=== PATIENT | male | born 1950 | race Caucasian/White ===

== ENCOUNTER → 2024-01-06 | Outpatient (CLI) | payer MEDICARE ==
[2024-01-07 05:38] LABS: Clam IgE <0.10 kU/L; Codfish IgE <0.10 kU/L; Egg White IgE <0.10 kU/L; Peanut IgE <0.10 kU/L; Scallop IgE <0.10 kU/L; Shrimp IgE <0.10 kU/L; Soybean IgE <0.10 kU/L; Walnut IgE (Food) 0.46 kU/L
[2024-01-07 05:39] LABS: Alternaria alternata IgE 0.18 kU/L; Aspergillus fumagatus IgE <0.10 kU/L; Cat Epith & Dander IgE 0.54 kU/L; Cladosporian herbarum IgE <0.10 kU/L; Dermato. farinae IgE <0.10 kU/L; Dog Dander IgE 0.39 kU/L; Maple (Box Elder) IgE 0.12 kU/L; Oak IgE 2.87 kU/L; Ragweed,Common IgE 4.34 kU/L
[2024-01-07 10:11] LABS: Cockroach IgE <0.10 kU/L
[2024-01-07 14:30] LABS: Pork IgE Class CLASS 0
[2024-01-07 14:31] LABS: Beef IgE <0.10 kU/L (<0.10); Beef IgE Class CLASS 0; Chicken IgE Class CLASS 0; Yeast Bakers/Brew IgE <0.10 kU/L (<0.10); Yeast Bakers/Brew IgE Class CLASS 0
[2024-01-07 14:32] LABS: Johnson Grass IgE Class CLASS 0/1; Rhizopus nigricans IgE <0.10 kU/L (<0.10); Rhizopus nigricans IgE Class CLASS 0; Timothy Grass IgE 1.92 kU/L (<0.10); Timothy Grass IgE Class CLASS 2
[2024-01-07 14:33] LABS: Latex IgE Class CLASS 0/1; Mucor racemosus IgE <0.10 kU/L (<0.10); Mucor racemosus IgE Class CLASS 0
[2024-01-07 14:34] LABS: Aureo. pullulans IgE <0.10 kU/L (<0.10); Aureo. pullulans IgE Class CLASS 0; Candida albicans IgE Class CLASS 0; Epicoccum purpurascens Class CLASS 0; Epicoccum purpurascens IgE <0.10 kU/L (<0.10)
[2024-01-07 14:35] LABS: Avocado Class CLASS 0/1; Banana IgE Class CLASS 0/1; Hazelnut IgE 1.83 kU/L (<0.10); Hazelnut IgE Class CLASS 2; Kiwi IgE 0.38 kU/L (<0.10); Kiwi IgE Class CLASS 1; S.rostrata/Helminth Class CLASS 0; S.rostrata/Helminth IgE <0.10 kU/L (<0.10); Sycamore(Mpl.Lf) IgE 0.14 kU/L (<0.10); Sycamore(Mpl.Lf) IgE Class CLASS 0/1; Walnut Tree IgE 0.15 kU/L (<0.10); Walnut Tree IgE Class CLASS 0/1
[2024-01-07 14:36] LABS: White Ash IgE Class CLASS 0/1
[2024-01-07 14:37] LABS: Com. Pigweed IgE 0.11 kU/L (<0.10); Com. Pigweed IgE Class CLASS 0/1; English Plantain IgE Class CLASS 0/1; Lamb's Quarter IgE <0.10 kU/L (<0.10); Lamb's Quarter IgE Class CLASS 0
== END | disposition home or self-care (01) ==
LOC: LABWHC1 13:13
PROVIDERS: ATTEND Otolaryngology
DX: L50.0 Allergic urticaria (principal)
CPT/HCPCS: 36415; 82785; 86003

== ENCOUNTER → 2024-07-26 | Day surgery (SDC) | payer MEDICARE ==
[2024-07-20 14:45] VITALS: BMI 27.9
[~2024-07-26] MED LIST: LIDOCAINE 1% (10MG/ML) FOR IV START INTRADERMA PRN; MIDAZOLAM 2 MG/2 ML VIAL ONE; TETRACAINE 0.5% OPHTH (PF) DROPS 4 ML BTL OP PRN; fentaNYL (PF) 50 MCG/ML 2 ML AMP ONE
[2024-07-26] MEDS: IV FLUID CONTINUATION 1,000 ML IV ONE (08:22)
[2024-07-26 08:24] VITALS: TEMP 97.3
[2024-07-26] MEDS: LACTATED RINGERS 1,000 ML IV SCH (08:27)
[2024-07-26] MEDS: CYCLOPENTOLATE 1% OPHTH SOLN 2 ML BTL OP PRN (08:28)
[2024-07-26] MEDS: PHENYLEPHRINE 2.5% OPHTH DRP 2ML OP PRN (08:31)
[2024-07-26] MEDS: HYALURONATE SODIUM INTRAOCULAR 1 EACH SYRINGE (12MG/ML) INTRAOCULA ONE (09:18)
[2024-07-26] MEDS: BALANCED SALT IRRIG SOLN COMB2 15 ML IRRIG.SOLN INTRAOCULA ONE (09:19)
[2024-07-26] MEDS: LIDOCAINE 1% (PF) 10MG/ML VIAL MISCELLANE ONE (09:19)
[2024-07-26] MEDS: EPINEPHrine (PF) 0.3 ML in BALANCED SALT IRRIG SOLN COMB2 500 ML IRRIGATION ONE (09:20)
[2024-07-26] MEDS: MOXIFLOXACIN HCL 0.5% DROPS 3 ML BTL OP PRN (09:29)
[2024-07-26] MEDS: TIMOLOL 0.5% OPHTH DROPS 5 ML BTL OP PRN (09:29)
[2024-07-26] MEDS: TRIAMCINOLONE ACETONIDE 40 MG/ML 1 ML VIAL INTRADERMA ONE (09:31)
[2024-07-26] MEDS: ACETYLCHOLINE CHLORIDE 10 MG/ML 2 ML KIT INTRAOCULA ONE (10:10)
[2024-07-26] MEDS: FLUORESCEIN STRIPS 1 MG STRIP LEFT EYE ONE (10:14)
--- NOTE | 2024-07-26 10:22 | P.OP ---
Date of Procedure: 07/26/24 Preoperative Diagnosis: cloudy lens Postoperative Diagnosis: same Procedure(s) Performed: IOL exchange Anesthesia: MAC Surgeon: Wilmer Sosa Pathology: none sent Condition: stable Disposition: same day Indications for Procedure: blurry vision Operative Findings: no complications
[2024-07-26 14:58] VITALS: RESP 18
[2024-07-26 14:59] VITALS: BP 150/94; PULSE 99
--- NOTE | 2024-07-26 18:11 | OP ---
OPERATIVE REPORT DATE OF SERVICE : 07/26/2024 PROCEDURE PERFORMED: Intraocular lens exchange of the left eye. PREOPERATIVE DIAGNOSIS: Damaged intraocular lens, left eye. POSTOPERATIVE DIAGNOSIS: Damaged intraocular lens, left eye. ANESTHESIA: Topical. ESTIMATED BLOOD LOSS: None. SPECIMEN TAKEN: None. DESCRIPTION OF PROCEDURE: After obtaining the appropriate consent, the patient was brought to the operating room. There, he was placed under cardiac monitoring, prepped and draped in the usual sterile manner. He was approached from his left temporal side, and at the 5 o'clock position, an MVR blade was used to create a paracentesis port. Through this opening, 1% Xylocaine MPF 50:50 mix with balanced salt solution was injected into the anterior chamber. This was followed by stabilization of the anterior chamber with Amvisc. At the 3 o'clock position, a 2.8 mm keratome was used to create a self-sealing corneal flap incision. Using various instruments including balanced salt solution on a Binkhorst cannula, various probes such as a Sinskey hook and MeMedt lens manipulator, the bag fixated intraocular lens was rocked, and eventually, from its well-healed position within the capsular bag. The capsular bag had a capsulotomy from a previous laser procedure, and care was taken so as not to increase the size of either the anterior or posterior capsule openings. In removing the intraocular lens, primarily, the optic from the superior and inferior positions easily slipped out from between the two capsular leaflets. The nasal haptic also was able to finally be freed from within the capsule of the lens bag itself, however, significant difficulty was encountered in removing the nasal haptic due to the confirmation of the tip of the haptic itself, which was bulb shaped, realizing that there was too much tension being placed on the zonules to the capsular bag and the inability to truly get between the two leaflets of the capsule, it was decided to amputate the temporal haptic as close to the capsular openings as possible using a [employer] lens removal system, the temporal haptic was amputated, leaving approximately 30% of the haptic retained between the leaflets of the capsular bag. The lens was now freely able to move around the anterior chamber. Additional Amvisc was used to tamponade the posterior capsular opening to reduce the opportunity for the lens to slip posteriorly and attempt to scroll the lens out of the anterior chamber was unsuccessful, therefore, the lens was divided into two equal parts using the [employer] lens removal system. Once the lens was removed from the anterior chamber, then, irrigation and aspiration were used to remove the viscoelastic, and Kenalog was instilled into the anterior chamber after it had been washed 3 times with balanced salt solution to identify any stray vitreous from the previous vitrectomy, which had led to the clouding of the existing intraocular lens or the just removed intra-ocular lens. There was no evidence of any stray vitreous in the anterior chamber. The majority of the viscoelastic and Kenalog was removed with the irrigation and aspiration, and a Bausch and Lomb LI61AO, 17 diopter posterior chamber intraocular lens was then inserted into the anterior capsule using both Bechert and Sinskey hooks. The intraocular lens was then rotated so that the haptics rested at the 3 and 9 o'clock position in the ciliary sulcus and the body of the lens was captured at the level of the anterior capsule securing the lens in position. Gentle irrigation and aspiration were used to remove any remaining portion of viscoelastic in the anterior chamber and one final check with Kenalog was used to prove no residual vitreous in the anterior chamber as well. At this stage in the procedure, Miochol was used to bring about pupillary miosis. The temporal incision was checked for watertight integrity, and the eye was then brought to normal intraocular pressure through the paracentesis port with balanced salt solution. The patient then received 2 drops of 5% timolol, followed by 2 drops of 0.5% moxifloxacin was then lightly patched and shielded in the usual manner. There were no complications from the procedure. He tolerated the procedure well and returned to the outpatient recovery in good condition. MMODL / IJN: [id number] /
== END | disposition home or self-care (01) ==
LOC: OR 07:24
PROVIDERS: ATTEND Ophthalmology
DX: T85.9XXD Unspecified complication of internal prosthetic device, implant and graft, subsequent encounter

== ENCOUNTER 2025-01-22 07:18 | Day surgery (SDC) | payer MEDICARE ==
[~2025-01-22 07:18] MED LIST changes: +ALPRAZolam 0.25 MG TAB PO PRN; +ALPRAZolam 0.5 MG TAB PO PRN; +HEPARIN SODIUM,PORCINE (1 ML) 2,500 UNIT in SODIUM CHLORIDE 0.9% 250 ML IRRIGATION PRN; +HEPARIN SODIUM,PORCINE 10,000 UNIT in SODIUM CHLORIDE 0.9% 1,000 ML IRRIGATION PRN; -LIDOCAINE 1% (10MG/ML) FOR IV START INTRADERMA PRN; -MIDAZOLAM 2 MG/2 ML VIAL ONE; +NITROGLYCERIN SL TABS 0.4 MG TAB SUBLINGUAL PRN; -TETRACAINE 0.5% OPHTH (PF) DROPS 4 ML BTL OP PRN; -fentaNYL (PF) 50 MCG/ML 2 ML AMP ONE
[2025-01-22 07:35] VITALS: RESP 16; TEMP 98.4
[2025-01-22] MEDS: SODIUM CHLORIDE 0.9% 1,000 ML in EMPTY BAG 1 BAG IV SCH (07:40)
[2025-01-22] MEDS: IV FLUID CONTINUATION 1,000 ML IV ONE (07:44)
[2025-01-22] MEDS: ATORVASTATIN 80 MG TAB PO STA (07:46)
[2025-01-22] MEDS: ASPIRIN 325 MG TAB PO STA (07:46)
[2025-01-22] MEDS: HEPARIN SODIUM,PORCINE 10,000 UNIT in SODIUM CHLORIDE 0.9% 1,000 ML IRRIGATION ONE (08:07)
[2025-01-22] MEDS: HEPARIN SODIUM,PORCINE (1 ML) 2,500 UNIT in SODIUM CHLORIDE 0.9% 250 ML IRRIGATION ONE (08:07)
[2025-01-22 08:09] LABS: African American GFR (CKD) >90 (>60 ml/min/1.73 sqM); Anion Gap 8 mmol/L; Blood Urea Nitrogen 14 mg/dL (9-20); Calcium 9.4 mg/dL (8.4-10.2); Carbon Dioxide 29 mmol/L (22-30); Chloride 99 mmol/L (98-107); Glucose 131 mg/dL (74-99); Non-African American GFR(CKD) >90 (>60 ml/min/1.73 sqM); Potassium 4.1 mmol/L (3.5-5.1); Sodium 136 mmol/L (137-145)
[2025-01-22 08:14] LABS: Basophils % (A) 1 %; Eosinophils # (A) 0.2 k/uL (0-0.7); Eosinophils % (A) 4 %; HCT 44.7 % (39.0-53.0); Lymphocytes % (A) 21 %; MCH 33.1 pg (25.0-35.0); MCHC 35.9 g/dL (31.0-37.0); MCV 92.4 fL (80.0-100.0); Mean Platelet Volume 7.1; Monocytes # (A) 0.4 k/uL (0-1.0); Monocytes % (A) 8 %; Neutrophils # (A) 2.8 k/uL (1.3-7.7); Neutrophils % (A) 61 %; Platelet Count 173 k/uL (150-450); RBC 4.84 m/uL (4.30-5.90); RDW 11.5 % (11.5-15.5); WBC 4.5 k/uL (3.8-10.6)
[2025-01-22] MEDS: MIDAZOLAM 2 MG/2 ML VIAL IVP ONE (08:19)
[2025-01-22] MEDS: fentaNYL (PF) 50 MCG/1 ML VIAL IVP ONE (08:21)
[2025-01-22] MEDS: LIDOCAINE 1% INJ 10MG/ML (10 ML MDV) SQ ONE (08:21)
[2025-01-22] MEDS: VERAPAMIL SYRINGE (5 MG/10 ML) INTRAARTER ONE (08:22)
[2025-01-22] MEDS: IOPAMIDOL-370 100ML BTL INJ ONE (08:30)
--- NOTE | 2025-01-22 08:35 | P.CARDCATH ---
Description of Procedure: PROCEDURES PERFORMED: Left heart catheterization, bilateral coronary angiography, ultrasound guided arterial access INDICATION: Abnormal EKG, NYHA class III anginal symptoms despite normal stress test CONSENT:I have discussed the risks, benefits and alternative therapies for the above-mentioned procedure and for both sedation/analgesia as well as necessary blood product administration, if indicated, as they pertain to this patient. The patient has indicated understanding and acceptance of the risks and procedures discussed. PROCEDURE: After the risks, benefits and alternatives of the above mentioned procedure explained in detail with the patient, informed consent was obtained. Patient was taken to the catheterization lab and prepped and draped in usual fashion. Ultrasound guidance was used to assess for arterial access. 1% lidocaine was used to anesthetize the right radial artery. A 6-Guamanian sheath was placed in the right radial artery using modified Seldinger technique and ultrasound guidance. Left coronary angiography was performed with a 5-Guamanian JL 3.5 catheter and right coronary angiography was performed with a 5-Guamanian FR5 catheter in various views. A 5-Guamanian FFR5 catheter was inserted into the left ventricle and pressure measurements were obtained. The right radial sheath was removed and a TR band was placed with hemostasis achieved. The patient tolerated the procedure well. Patient was transported back to the post catheterization holding area in stable condition. Conscious Sedation: Patient was monitored under the direct supervision of myself for conscious sedation using Versed and fentanyl for a total duration of 12 minutes HEMODYNAMICS: Ao: 132/71 LV: 138/10, LVEDP 20 SELECTIVE CORONARY ARTERIOGRAPHY: LEFT MAIN: The left main is a large caliber vessel which bifurcates into the LAD and circumflex. There is no significant stenosis. LEFT ANTERIOR DESCENDING CORONARY ARTERY: LAD is a large caliber vessel which wraps around to the apex. There is no significant stenosis. LEFT CIRCUMFLEX CORONARY ARTERY: Left circumflex is a moderate caliber vessel without significant stenosis. RIGHT CORONARY ARTERY: The right coronary artery is a large caliber vessel which gives off a PDA and PLV branch and is the dominant vessel. There is no significant stenosis. FINAL IMPRESSION: 1. Normal coronary arteries as described above. 2. Mildly elevated left sided filling pressures PLAN: 1. Aggressive risk factor modification per most recent ACC/AHA guidelines. 2. Follow-up in the office in 1-2 weeks.
[2025-01-22 12:59] VITALS: BP 156/73; PULSE 56
== END 2025-01-22 11:44 | disposition home or self-care (01) ==
LOC: CATHCVL 07:18
PROVIDERS: ATTEND Internal Medicine
DX: I20.9 Angina pectoris, unspecified (principal); R94.31 Abnormal electrocardiogram [ECG] [EKG]; I10 Essential (primary) hypertension; J45.909 Unspecified asthma, uncomplicated; E78.2 Mixed hyperlipidemia; Z79.899 Other long term (current) drug therapy
CPT/HCPCS: 93458; 80048; 85025; 99152; C1894; J2250; J1644 ×3; Q9967; J3010; J2003